=== PATIENT | male | born 1955 | race Caucasian/White ===

== ENCOUNTER 2017-01-02 05:01 | Inpatient (IN) | payer MEDICARE ==
[~2017-01-02] VITALS: Ht 180.3 cm; Wt 98.2 kg
[2017-01-02] VITALS (23 sets, daily range): BP systolic 132–213; BP diastolic 76–133; PULSE 50–108; RESP 16–20; TEMP 97.9; O2SAT 93–98
[2017-01-02] MEDS ORDERED: AMLO10TA2 PO (05:27)
[2017-01-02] MEDS ORDERED: VENL100T PO (05:27)
[2017-01-02] MEDS ORDERED: SIMV20TA PO (05:28)
[2017-01-02] MEDS ORDERED: TAMS0.4C4 PO (05:28)
[2017-01-02] MEDS ORDERED: METH500T3 PO (05:28)
[2017-01-02] MEDS ORDERED: BUSP30TA PO (05:28)
[2017-01-02] MEDS ORDERED: ASPI1TAB69 PO (05:29)
[2017-01-02] MEDS ORDERED: LABE200T2 PO (05:29)
[2017-01-02] MEDS ORDERED: OXYC1CAP PO (05:29)
[2017-01-02] MEDS ORDERED: CRANCAP2 PO (05:30)
[2017-01-02] MEDS ORDERED: MORPHINE SULFATE 4 MG/ML INJ IV PUSH ONE ×2 (05:45→10:45)
[2017-01-02] MEDS ORDERED: ONDANSETRON HCL 4 MG/2 ML VIAL IV PUSH ONE (05:45)
[2017-01-02] MEDS ORDERED: LABETALOL HCL 100 MG/20 ML VIAL IV PUSH ONE (05:45)
[2017-01-02] MEDS ORDERED: SODIUM CHLORIDE 0.9% FLUSH 5 ML FLUSH IVF PRN (05:45)
--- NOTE | 2017-01-02 05:57 | PD ---
HPI Chief Complaint: Hypertension Time Seen by Provider: 05:20 Travel History International Travel<30 days: No Contact w/Intl Traveler<30days: No Traveled to known affect area: No History of Present Illness HPI The patient is a 61 year old male who presents to the [facility] emergency department with a history of reportedly "just not feeling right" this evening. He reports that every time he would try to lie down something would tell him that he needs to get up. He reports that over the last week he has had increased neck pain. 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 He reports that he is chronically on Percocet for this, however his Percocet has not been helping over the last week. He reports that the pain is worse along the left side of his neck. He denies having any numbness or tingling to his arms or legs. He denies having any dizziness, headache, facial droop, difficulty with word finding ability, or weakness in his extremities. The patient reports that when he fell off this evening he took his blood pressure and noticed that it was very high for him. He reports that his blood pressure is usually 120/80. He reports that it is been very well-controlled over the last 5 years since he was diagnosed with an aortic dissection. He reports that this was treated nonoperatively. The patient denies any recent fevers, cough, congestion, neck pain, chest pain, shortness of breath, abdominal pain, vomiting, diarrhea, or new urinary symptoms. PFSH Past Medical History Narrative Medical The patient's past medical history is significant for hypertension, history of a dissecting aortic aneurysm that was managed nonoperatively. Cardiac Catheterization: Yes Cardiovascular Problems: Yes (HTN, disecting aortic aneurysm ) Hypertension: Yes Influenza Vaccination: No Past Surgical History Narrative Surgical The patient's past surgical history is significant for wrist ORIF on the left, hernia repair, bowel surgery as an infant. Other Surgery: Yes (wrist, hernia, small and large bowel surgery when younger ) Social History Alcohol Use: No Tobacco Use: No Substance Use: Yes (marijuana ) Allergies-Medications (Allergen,Severity, Reaction): Coded Allergies: No Known Allergies (Unverified , 01/02/17) Reported Meds & Prescriptions Reported Meds & Active Scripts Active Reported Cranberry Urinary Comfort (Vitamins C & E) 1 Cap 4,200 Cap PO DAILY Aspirin 81 Mg Tabdr 81 Mg PO DAILY Labetalol (Labetalol HCl) 200 Mg Tab 200 Mg PO BID Oxycodone (Oxycodone HCl) 5 Mg Cap 5 Mg PO Q6H PRN Methocarbamol 500 Mg Tab 100 Mg PO TID Buspirone (Buspirone HCl) 30 Mg Tab 30 Mg PO BID Simvastatin 20 Mg Tab 20 Mg PO DAILY Tamsulosin (Tamsulosin HCl) 0.4 Mg Cap 0.4 Mg PO HS Amlodipine (Amlodipine Besylate) 10 Mg Tab 10 Mg PO DAILY Effexor (Venlafaxine HCl) 100 Mg Tab 100 Mg PO Q12H Review of Systems Except as stated in HPI: all other systems reviewed are Neg General / Constitutional: No: Fever Eyes: No: Visual changes HENT: Positive: Neck Pain, No: Headaches, Rhinorrhea, Congestion, Neck Stiffness Cardiovascular: No: Chest Pain or Discomfort, Dyspnea on exertion Respiratory: No: Cough, Shortness of Breath Gastrointestinal: No: Nausea, Vomiting, Diarrhea, Abdominal Pain Genitourinary: No: Dysuria, Flank Pain Musculoskeletal: No: Pain Skin: No Rash Neurologic: No: Weakness, Focal Abnormalities, Change in Mentation, Slurred Speech, Paresthesia, Sensory Disturbance Psychiatric: No: Depression Endocrine: No: Polydipsia Hematologic/Lymphatic: No: Easy Bruising Physical Exam Narrative General: The patient is a well-developed well-nourished male in no acute distress. Head and Neck exam: Head is normocephalic atraumatic. Eyes: EOMI, pupils are equal round and reactive to light. Nose: Midline septum with pink mucous membranes Mouth: Dentition unremarkable. Moist mucus membranes. Posterior oropharynx is not erythematous. No tonsillar hypertrophy. Uvula midline. Airway patent. Neck: No palpable lymphadenopathy. No nuchal rigidity. No thyromegaly. The patient on examination has tenderness along the left cervical paraspinal musculature. The patient has no carotid bruits audible bilaterally. Cardiovascular: Regular rate and rhythm without murmurs, gallops, or rubs. No pulse deficit to the extremities. Lungs: Clear to auscultation bilaterally. No wheezes, rhonchi, or rales. Abdomen: Soft, without tenderness to palpation in all 4 quadrants of the abdomen. No guarding, rebound, or rigidity. No pulsatile mass noted on examination of the abdomen. No tenderness on palpation of McBurney's point. Normal bowel sounds are audible. Extremities: No clubbing, cyanosis, or edema. 2+ pulses in all 4 extremities. Back: No spinous process tenderness to palpation. No costovertebral angle tenderness to palpation. Neurologic Exam: Cranial nerves 2-12 were intact on exam. Strength is 5/5 in all 4 extremities. No sensory deficits noted. Skin Exam: No rash noted. Intact skin that is warm and dry. Data Data Last Documented VS Vital Signs Date Time Temp Pulse Resp B/P Pulse Ox O2 Delivery O2 Flow Rate FiO2 01/02/17 08:20 70 20 185/124 96 Room Air 01/02/17 05:05 97.9 Orders Electrocardiogram (01/02/17 05:45) B-Type Natriuretic Peptide (01/02/17 05:45) Ckmb (Isoenzyme) Profile (01/02/17 05:45) Complete Blood Count With Diff (01/02/17 05:45) Comprehensive Metabolic Panel (01/02/17 05:45) Magnesium (Mg) (01/02/17 05:45) Prothrombin Time / Inr (Pt) (01/02/17 05:45) Act Partial Throm Time (Ptt) (01/02/17 05:45) Troponin I (01/02/17 05:45) Lipase (01/02/17 05:45) Chest, Single Ap (01/02/17 05:45) Ecg Monitoring (01/02/17 05:45) Bilateral Bp Monitoring (01/02/17 05:45) Iv Access Insert/Monitor (01/02/17 05:45) Oximetry (01/02/17 05:45) Oxygen Administration (01/02/17 05:45) Sodium Chloride 0.9% Flush (Ns Flush) (01/02/17 05:45) Cta Thor Abd Aorta W Iv C W3d (01/02/17 05:45) Labetalol Inj (Trandate Inj) (01/02/17 05:45) Morphine Inj (Morphine Inj) (01/02/17 05:45) Ondansetron Inj (Zofran Inj) (01/02/17 05:45) CKMB (01/02/17 05:50) CKMB% (01/02/17 05:50) Iohexol 350 Inj (Omnipaque 350 Inj) (01/02/17 07:22) Esmolol Drip Inj Premix (Brevibloc Drip (01/02/17 07:45) Esmolol Bolus Inj (Brevibloc Bolus Inj) (01/02/17 07:45) Fentanyl Inj (Fentanyl Inj) (01/02/17 07:45) Consult Vascular Surgery (01/02/17 ) Admit Order (Ed Use Only) (01/02/17 08:19) Admit To Inpatient (01/02/17 ) Vital Signs (Adult) Q4H (01/02/17 08:19) Activity Oob With Assistance (01/02/17 08:19) X Ray Developer / Telemetry .CONTINUOUS (01/02/17 08:19) Diet Heart Healthy (01/02/17 Breakfast) Sodium Chloride 0.9% Flush (Ns Flush) (01/02/17 08:30) Sodium Chloride 0.9% Flush (Ns Flush) (01/02/17 09:00) Acetaminophen (Tylenol) (01/02/17 08:30) Ondansetron Inj (Zofran Inj) (01/02/17 08:30) Prochlorperazine Supp (Compazine Supp) (01/02/17 08:30) Bisacodyl Supp (Dulcolax Supp) (01/02/17 08:30) Magnesium Hydroxide Liq (Milk Of Magnesi (01/02/17 08:30) Sennosides (Senokot) (01/02/17 08:30) Basic Metabolic Panel (Bmp) (01/03/17 06:00) Complete Blood Count With Diff (01/03/17 06:00) Resp Oxygen Dre C Titrat 1-4 L (01/02/17 ) Pt Request For Service (01/02/17 08:19) Scd Bilateral/Knee High STEFFEN.BID (01/02/17 08:19) Audi Bilateral/Knee High STEFFEN.QSHIFT (01/02/17 08:19) Inpatient Certification (01/02/17 ) Case Management Consult (01/02/17 ) Labs Laboratory Tests Test 01/02/17 05:50 White Blood Count 11.2 TH/MM3 Red Blood Count 4.14 MIL/MM3 Hemoglobin 13.1 GM/DL Hematocrit 39.1 % Mean Corpuscular Volume 94.5 FL Mean Corpuscular Hemoglobin 31.7 PG Mean Corpuscular Hemoglobin 33.5 % Concent Red Cell Distribution Width 13.3 % Platelet Count 219 TH/MM3 Mean Platelet Volume 7.6 FL Neutrophils (%) (Auto) 68.7 % Lymphocytes (%) (Auto) 19.4 % Monocytes (%) (Auto) 9.0 % Eosinophils (%) (Auto) 2.1 % Basophils (%) (Auto) 0.8 % Neutrophils # (Auto) 7.7 TH/MM3 Lymphocytes # (Auto) 2.2 TH/MM3 Monocytes # (Auto) 1.0 TH/MM3 Eosinophils # (Auto) 0.2 TH/MM3 Basophils # (Auto) 0.1 TH/MM3 CBC Comment DIFF FINAL Differential Comment Prothrombin Time 10.9 SEC Prothromb Time International 1.0 RATIO Ratio Activated Partial 30.1 SEC Thromboplast Time Sodium Level 145 MEQ/L Potassium Level 3.1 MEQ/L Chloride Level 108 MEQ/L Carbon Dioxide Level 29.2 MEQ/L Anion Gap 8 MEQ/L Blood Urea Nitrogen 16 MG/DL Creatinine 1.48 MG/DL Estimat Glomerular Filtration 48 ML/MIN Rate Random Glucose 95 MG/DL Calcium Level 8.7 MG/DL Magnesium Level 2.1 MG/DL Total Bilirubin 0.2 MG/DL Aspartate Amino Transf 18 U/L (AST/SGOT) Alanine Aminotransferase 20 U/L (ALT/SGPT) Alkaline Phosphatase 81 U/L Total Creatine Kinase 260 U/L Creatine Kinase MB 2.7 NG/ML Troponin I LESS THAN 0.02 NG/ML B-Type Natriuretic Peptide 61 PG/ML Total Protein 6.6 GM/DL Albumin 3.7 GM/DL Lipase 96 U/L [facility] Medical Decision Making Medical Screen Exam Complete: Yes Emergency Medical Condition: Yes Medical Record Reviewed: Yes Interpretation(s) Last Impressions Chest X-Ray 01/02/1745 Signed Impressions: Service Date/Time: Monday, January 02, 2017 05:48 - CONCLUSION: Findings suspicious for thoracic aortic aneurysm at the arch. Recommend CTA aorta for further evaluation. Sancho Ly MD Aorta CTA 01/02/1745 Signed Impressions: Service Date/Time: Monday, January 02, 2017 07:01 - CONCLUSION: Type B aortic dissection only involving the descending aorta starting at the level of the aortic arch and aneurysmal dilatation of the false lumen which supplies the celiac, PHIL and left renal arteries. Hugo Gaviria MD Differential Diagnosis Dissecting aneurysm, versus cervical radiculopathy, versus exacerbation of chronic neck pain from degenerative disc disease Narrative Course During the course of the patients emergency department visit, the patients history, examination, and differential diagnosis were reviewed with the patient. The patient had IV access obtained and blood work sent for analysis. The patient was placed on a cardiac rn with oximetry and blood pressure monitoring. An EKG was ordered. The patient's EKG reveals a sinus rhythm with a marked sinus arrhythmia, heart rate of 75, no acute ST segment elevation is noted. T waves are inverted in V1. The patient initially had morphine for pain and labetalol written for blood pressure control, however with 4 mg of morphine IV, Zofran 4 mg IV, the patient' s blood pressure went down to a systolic of 130, labetalol was held and the patient reported feeling improved. The patients laboratory studies were reviewed and remarkable for a white count of 11.2, hemoglobin 13.1, platelets 219 with 9 monocytes, CMP is remarkable for potassium 3.1 which was supplemented orally with 40 mEq of potassium chloride, creatinine 1.48, cardiac enzymes initial set are within normal limits. BMP is 61, lipase 96, PT 10.9, PTT 30.1. The patient's blood pressure and pain recurred. The patient was given additional pain medication and the labetalol was also administered. The patient was started on an esmolol drip. Radiology studies were reviewed and remarkable for a chest x-ray that shows findings suspicious for a thoracic aortic aneurysm of the arch, recommended CTA of the aorta for further evaluation. On repeat vital signs at shift change at 6:59 AM, the patient's blood pressure had gone up again, the patient was given labetalol 10 mg IV. The patient was then transported to CT for evaluation. The patient's case will be checked out to the oncoming emergency physician to disposition based on the imaging results. Critical Care Narrative Aggregate critical care time was 37 minutes. Time to perform other separately billable procedures was not included in the critical care time. My time did not include minutes spent treating any other patients simultaneously or on activities that did not directly contribute to the patient's treatment. The services I provided to this patient were to treat and/or prevent clinically significant deterioration that could result in: Cardiovascular collapse, versus cardiopulmonary arrest I provided critical care services requiring my management, as noted below: Chart data review, documentation time, medication orders and management, vital sign assessments/reviewing monitor data, ordering and reviewing lab tests, ordering and interpreting/reviewing x-rays and diagnostic studies, care of the patient and discussion of the patient with the admitting physicians. Diagnosis Primary Impression: Dissecting aneurysm of thoracic aorta, Rubens type B Additional Impressions: Neck pain Hypertension Qualified Code: I10 - Essential hypertension Admitting Information Admitting Physician Requests: Admit Steffi Goodwin MD Jan 02, 2017 05:57 Narrative Course During the course of the patients emergency department visit, the patients history, examination, and differential diagnosis were reviewed with the patient. The patient had IV access obtained and blood work sent for analysis. The patient was placed on a cardiac rn with oximetry and blood pressure monitoring. An EKG was ordered. The patient's EKG reveals a sinus rhythm with a marked sinus arrhythmia, heart rate of 75, no acute ST segment elevation is noted. T waves are inverted in V1. The patient initially had morphine for pain and labetalol written for blood pressure control, however with 4 mg of morphine IV, Zofran 4 mg IV, the patient' s blood pressure went down to a systolic of 130, labetalol was held and the patient reported feeling improved. The patients laboratory studies were reviewed and remarkable for a white count of 11.2, hemoglobin 13.1, platelets 219 with 9 monocytes, CMP is remarkable for potassium 3.1 which was supplemented orally with 40 mEq of potassium chloride, creatinine 1.48, cardiac enzymes initial set are within normal limits. BMP is 61, lipase 96, PT 10.9, PTT 30.1. Radiology studies were reviewed and remarkable for a chest x-ray that shows findings suspicious for a thoracic aortic aneurysm of the arch, recommended CTA of the aorta for further evaluation. On repeat vital signs at shift change at 6:59 AM, the patient's blood pressure had gone up again, the patient was given labetalol 10 mg IV. The patient was then transported to CT for evaluation. The patient's case will be checked out to the oncoming emergency physician to disposition based on the imaging results. Diagnosis Primary Impression: Neck pain Additional Impression: Hypertension Qualified Code: I10 - Essential hypertension Steffi Goodwin MD Jan 02, 2017 05:57
--- NOTE | 2017-01-02 06:03 | RADRPT ---
EXAM DATE/TIME: 01/02/2017 05:48 [facility] COMPARISON: No previous studies available for comparison. INDICATIONS : Chest pain. MEDICAL HISTORY : None. SURGICAL HISTORY : None. ENCOUNTER: Initial ACUITY: 1 day PAIN SCORE: 0/10 LOCATION: Bilateral chest FINDINGS: Single AP view of the chest. Marked enlargement and lower convexity of the thoracic aortic silhouette suggesting large thoracic aortic aneurysm at the arch. Lungs are clear. No evidence of pleural effus ion or pneumothorax. CONCLUSION: Findings suspicious for thoracic aortic aneurysm at the arch. Recommend CTA aorta for further evaluat ion. Sancho Ly MD on January 02, 2017 at 5:59 Board Certified Radiologist. This report was verified electronically.
[2017-01-02 06:05] LABS: AUTOMATED NEUTROPHIL # 7.7 TH/MM3 (1.8-7.7); BASOPHIL # 0.1 TH/MM3 (0-0.2); BASOPHIL % 0.8 % (0.0-2.0); EOSINOPHIL # 0.2 TH/MM3 (0-0.4); EOSINOPHIL % 2.1 % (0.0-4.0); HEMATOCRIT 39.1 % (39.0-51.0); HEMO FLAGS DIFF FINAL; LYMPH % 19.4 % (9.0-44.0); LYMPHOCYTE # 2.2 TH/MM3 (1.0-4.8); MEAN CELL VOLUME 94.5 FL (80.0-100.0); MEAN CORPUSCULAR HEMOGLOBIN 31.7 PG (27.0-34.0); MEAN CORPUSCULAR HGB CONC 33.5 % (32.0-36.0); NEUT % 68.7 % (16.0-70.0); PLATELET COUNT 219 TH/MM3 (150-450); RED BLOOD COUNT 4.14 MIL/MM3 (4.50-5.90); RED CELL DISTRIBUTION WIDTH 13.3 % (11.6-17.2); WHITE BLOOD COUNT 11.2 TH/MM3 (4.0-11.0)
[2017-01-02 06:17] LABS: APTT (PATIENT) 30.1 SEC (24.3-30.1); PROTHROMBIN TIME - PATIENT 10.9 SEC (9.8-11.6)
[2017-01-02 06:39] LABS: ANION GAP 8 MEQ/L (5-15); AST (GOT) 18 U/L (15-37); BICARBONATE 29.2 MEQ/L (21.0-32.0); BLOOD UREA NITROGEN 16 MG/DL (7-18); CHLORIDE 108 MEQ/L (98-107); GLOMERULAR FILTRATION RATE 48 ML/MIN (>89); MAGNESIUM 2.1 MG/DL (1.5-2.5); POTASSIUM 3.1 MEQ/L (3.5-5.1); SODIUM (NA) 145 MEQ/L (136-145)
[2017-01-02 06:44] LABS: ALKALINE PHOSPHATASE 81 U/L (45-117); ALT (GPT) 20 U/L (12-78); CREATINE KINASE 260 U/L (39-308); TOTAL BILIRUBIN ADULT 0.2 MG/DL (0.2-1.0)
[2017-01-02 06:56] LABS: CKMB 2.7 NG/ML (0.5-3.6)
[2017-01-02] MEDS ORDERED: IOHEXOL 350 MG/ML 10 ML VIAL (for RAD DIAG) IV ONE (07:22)
--- NOTE | 2017-01-02 07:30 | RADRPT ---
EXAM DATE/TIME: 01/02/2017 07:01 [facility] COMPARISON: CHEST SINGLE AP, January 02, 2017, 5:48. INDICATIONS : Aortic dissection. IV CONTRAST: 99 cc Omnipaque 350 (iohexol) IV RADIATION DOSE: 16.99 CTDIvol (mGy) MEDICAL HISTORY : Hypertension. Aortic aneurysm SURGICAL HISTORY : None. ENCOUNTER: Initial ACUITY: 1 day PAIN SCALE: 6/10 LOCATION: chest TECHNIQUE: Volumetric scanning was performed using a multi-row detector CT scanner. The data was post processed with a variety of visualization algorithms including full volume maximum intensity projection, multi -planar sliding thin slab reformation, curved planar reformation, and surface rendering techniques. Using automated exposure control and adjustment of the mA and/or kV according to patient size, radiat ion dose was kept as low as reasonably achievable to obtain optimal diagnostic quality images. FINDINGS: There is aortic dissection which starts at the level of the aortic arch and extends all the way down to involve the left common iliac artery. The ascending aorta is not involved. The aorta is aneur ysmal involving the descending aorta at the level of the aortic arch measuring 8.1 x 7.1 cm in size a nd most of it is due to the false lumen. The takeoff of the celiac artery, PHIL, and left renal artery are supplied by the false lumen. The SMA and right renal artery are supplied by the true lumen. 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 There also cysts in the liver. There are scattered diverticuli mainly in the sigmoid colon without definite signs of diverticulitis. There is fat herniation within bilateral inguinal canals worse on the right without e vidence for bowel herniation. There are degenerative changes and possible bulging discs in the lower lumbosacral spine not adequately characterized. The gallbladder demonstrates multiple stones without gallbladder wall thickening, or pericholecystic fluid. CONCLUSION: Type B aortic dissection only involving the descending aorta starting at the level of the aortic arch and aneurysmal dilatation of the false lumen which supplies the celiac, PHIL and left renal arteries. Hugo Gaviria MD on January 02, 2017 at 7:23 Board Certified Radiologist. This report was verified electronically.
[2017-01-02] MEDS ORDERED: ESMOLOL DRIP INJ PREMIX 250 ML IV SCH (07:45)
[2017-01-02] MEDS ORDERED: ESMOLOL HCL 100 MG/10 ML VIAL IV PUSH PRN (07:45)
--- NOTE | 2017-01-02 08:22 | PD.VS.CON ---
History of Present Illness Chief Complaint: Neck pain, TBAD Consult Requested by: Dr. Holt History of Present Illness 61 yo male with known history of "aortic aneurysm" followed by a vascular surgeon in [place], [place]. Presented to ED with L neck pain. He initially had global neck pain but now is better and more focal on the LEFT side. Never had this pain before. No radiation and no neuro changes. No chest pain or back pain. The patient reports that he has a known history of aneurysm that he has known about for a time and that every time he gets a CXR they notice it. Past/Family/Social History Past Medical History HTN aortic "aneurysm" Past Surgical History L arm surgery UHR as child Social History Lives in [place], [place] but here for bike week Home Medications Reported Medications Vitamins C & E (Cranberry Urinary Comfort)1 Cap4,200 Cap PO DAILY Ref 0 01/02/17 Aspirin 81 Mg Tabdr81 Mg PO DAILY 01/02/17 Labetalol 200 Mg Jer036 Mg PO BID Ref 0 01/02/17 Oxycodone 5 Mg Cap5 Mg PO Q6H PRN (PAIN) Ref 0 01/02/17 Methocarbamol 500 Mg Pht343 Mg PO TID #90 TAB Ref 0 01/02/17 Buspirone 30 Mg Tab30 Mg PO BID Ref 0 01/02/17 Simvastatin 20 Mg Tab20 Mg PO DAILY #30 TAB Ref 0 01/02/17 Tamsulosin 0.4 Mg Cap0.4 Mg PO HS #30 CAP Ref 0 01/02/17 Amlodipine 10 Mg Tab10 Mg PO DAILY #30 TAB Ref 0 01/02/17 Venlafaxine (Effexor)100 Mg [id number] Mg PO Q12H #60 TAB Ref 0 01/02/17 Coded Allergies: No Known Allergies (Unverified , 01/02/17) Review of Systems Constitutional: DENIES: Fever, Chills, Dizziness Cardiovascular: COMPLAINS OF: Claudication, DENIES: Chest pain Musculoskeletal: COMPLAINS OF: Joint pain, Muscle aches, Stiffness, Neck pain Physical Exam Vitals/I&O Date Time Temp Pulse Resp B/P Pulse Ox O2 Delivery O2 Flow Rate FiO2 01/02/17 08:09 75 20 207/112 98 Room Air 01/02/17 07:53 75 18 208/107 98 Room Air 01/02/17 07:25 69 18 193/122 97 Room Air 01/02/17 06:59 108 18 175/115 98 Room Air 01/02/17 06:38 68 20 149/76 93 Room Air 01/02/17 06:24 69 20 167/91 94 Room Air 01/02/17 06:07 75 20 132/96 98 Room Air 01/02/17 06:06 97 Room Air 01/02/17 06:06 98 Room Air 01/02/17 05:31 76 20 98 Room Air 01/02/17 05:24 184/99 192/89 01/02/17 05:05 97.9 71 16 190/117 97 Room Air Neuro: Alert, oriented, no focal defects HEENT: NC/AT Neck: no JVD no point tenderness Heart: reg rate Lungs: clear B Abdomen: UHR incision well healed Vascular: Palpable femoral pulses Extremities: GIVENS, palpable UE pulses, symmetric Laboratory Tests Test 01/02/17 05:50 White Blood Count 11.2 Red Blood Count 4.14 Hemoglobin 13.1 Hematocrit 39.1 Mean Corpuscular Volume 94.5 Mean Corpuscular Hemoglobin 31.7 Mean Corpuscular Hemoglobin 33.5 Concent Red Cell Distribution Width 13.3 Platelet Count 219 Mean Platelet Volume 7.6 Neutrophils (%) (Auto) 68.7 Lymphocytes (%) (Auto) 19.4 Monocytes (%) (Auto) 9.0 Eosinophils (%) (Auto) 2.1 Basophils (%) (Auto) 0.8 Neutrophils # (Auto) 7.7 Lymphocytes # (Auto) 2.2 Monocytes # (Auto) 1.0 Eosinophils # (Auto) 0.2 Basophils # (Auto) 0.1 CBC Comment DIFF FINAL Differential Comment Prothrombin Time 10.9 Prothromb Time International 1.0 Ratio Activated Partial 30.1 Thromboplast Time Sodium Level 145 Potassium Level 3.1 Chloride Level 108 Carbon Dioxide Level 29.2 Anion Gap 8 Blood Urea Nitrogen 16 Creatinine 1.48 Estimat Glomerular Filtration 48 Rate Random Glucose 95 Calcium Level 8.7 Magnesium Level 2.1 Total Bilirubin 0.2 Aspartate Amino Transf 18 (AST/SGOT) Alanine Aminotransferase 20 (ALT/SGPT) Alkaline Phosphatase 81 Total Creatine Kinase 260 Creatine Kinase MB 2.7 Troponin I LESS THAN 0.02 B-Type Natriuretic Peptide 61 Total Protein 6.6 Albumin 3.7 Lipase 96 CTA reviewed: chronic appearing TBAD starting immediately at the [facility]. No evidence of rupture or inflammation. Maximum diamater over 7 cm. Tapers down to celiac with diameter 35mm at that location. dissection continues to L iliac system. Horsehoe kidney but has 2 main renal arteries in normal anatomic location. 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 no evidence of rupture and at present time, I think it is asymptomatic. Based on my review, should have elective repair sooner than later, and if he lived locally, I'd have him follow-up in my clinic to discuss repair, likely to include arch debranching and TEVAR. He has a vascular surgeon in [place] and he'd like to follow up with him. Needs aggressive BP control - started on esmolol gtt in ED. Goal SBP <130. Likely musculoskeletal etiology of neck pain. will monitor closely. Michael Magana MD FACS direct sales professional [facility] [phone] Michael Magana MD Jan 02, 2017 08:22
[2017-01-02] MEDS ORDERED: PROCHLORPERAZINE 25 MG SUPP PR PRN (08:30)
[2017-01-02] MEDS ORDERED: SENNOSIDES 8.6 MG TAB PO PRN (08:30)
[2017-01-02] MEDS ORDERED: oxyCODONE/ACETAMINOPHEN 5 MG/325 MG TAB PO ONE (08:30)
[2017-01-02] MEDS ORDERED: ONDANSETRON HCL 4 MG/2 ML VIAL IVP PRN (08:30)
[2017-01-02] MEDS ORDERED: SODIUM CHLORIDE 0.9% FLUSH 5 ML FLUSH FLUSH PRN (08:30)
[2017-01-02] MEDS ORDERED: MAGNESIUM HYDROXIDE SUSP 30 ML CUP PO PRN (08:30)
[2017-01-02] MEDS ORDERED: BISACODYL 10 MG SUPP PR PRN (08:30)
[2017-01-02] MEDS ORDERED: ACETAMINOPHEN 325 MG TAB PO PRN (08:30)
[2017-01-02] MEDS ORDERED: LABETALOL HCL 200 MG TAB PO ONE (08:30)
--- NOTE | 2017-01-02 08:38 | PD ---
Data Data Last Documented VS Vital Signs Date Time Temp Pulse Resp B/P Pulse Ox O2 Delivery O2 Flow Rate FiO2 01/02/17 08:20 70 20 185/124 96 Room Air 01/02/17 05:05 97.9 Orders Electrocardiogram (01/02/17 05:45) B-Type Natriuretic Peptide (01/02/17 05:45) Ckmb (Isoenzyme) Profile (01/02/17 05:45) Complete Blood Count With Diff (01/02/17 05:45) Comprehensive Metabolic Panel (01/02/17 05:45) Magnesium (Mg) (01/02/17 05:45) Prothrombin Time / Inr (Pt) (01/02/17 05:45) Act Partial Throm Time (Ptt) (01/02/17 05:45) Troponin I (01/02/17 05:45) Lipase (01/02/17 05:45) Chest, Single Ap (01/02/17 05:45) Ecg Monitoring (01/02/17 05:45) Bilateral Bp Monitoring (01/02/17 05:45) Iv Access Insert/Monitor (01/02/17 05:45) Oximetry (01/02/17 05:45) Oxygen Administration (01/02/17 05:45) Sodium Chloride 0.9% Flush (Ns Flush) (01/02/17 05:45) Cta Thor Abd Aorta W Iv C W3d (01/02/17 05:45) Labetalol Inj (Trandate Inj) (01/02/17 05:45) Morphine Inj (Morphine Inj) (01/02/17 05:45) Ondansetron Inj (Zofran Inj) (01/02/17 05:45) CKMB (01/02/17 05:50) CKMB% (01/02/17 05:50) Iohexol 350 Inj (Omnipaque 350 Inj) (01/02/17 07:22) Esmolol Drip Inj Premix (Brevibloc Drip (01/02/17 07:45) Esmolol Bolus Inj (Brevibloc Bolus Inj) (01/02/17 07:45) Fentanyl Inj (Fentanyl Inj) (01/02/17 07:45) Consult Vascular Surgery (01/02/17 ) Admit Order (Ed Use Only) (01/02/17 08:19) Admit To Inpatient (01/02/17 ) Vital Signs (Adult) Q4H (01/02/17 08:19) Activity Oob With Assistance (01/02/17 08:19) Casting Wheel Operator Helper / Telemetry .CONTINUOUS (01/02/17 08:19) Diet Heart Healthy (01/02/17 Breakfast) Sodium Chloride 0.9% Flush (Ns Flush) (01/02/17 08:30) Sodium Chloride 0.9% Flush (Ns Flush) (01/02/17 09:00) Acetaminophen (Tylenol) (01/02/17 08:30) Ondansetron Inj (Zofran Inj) (01/02/17 08:30) Prochlorperazine Supp (Compazine Supp) (01/02/17 08:30) Bisacodyl Supp (Dulcolax Supp) (01/02/17 08:30) Magnesium Hydroxide Liq (Milk Of Magnesi (01/02/17 08:30) Sennosides (Senokot) (01/02/17 08:30) Basic Metabolic Panel (Bmp) (01/03/17 06:00) Complete Blood Count With Diff (01/03/17 06:00) Resp Oxygen Dre C Titrat 1-4 L (01/02/17 ) Pt Request For Service (01/02/17 08:19) Scd Bilateral/Knee High STEFFEN.BID (01/02/17 08:19) Audi Bilateral/Knee High STEFFEN.QSHIFT (01/02/17 08:19) Inpatient Certification (01/02/17 ) Case Management Consult (01/02/17 ) Labs Laboratory Tests Test 01/02/17 05:50 White Blood Count 11.2 TH/MM3 Red Blood Count 4.14 MIL/MM3 Hemoglobin 13.1 GM/DL Hematocrit 39.1 % Mean Corpuscular Volume 94.5 FL Mean Corpuscular Hemoglobin 31.7 PG Mean Corpuscular Hemoglobin 33.5 % Concent Red Cell Distribution Width 13.3 % Platelet Count 219 TH/MM3 Mean Platelet Volume 7.6 FL Neutrophils (%) (Auto) 68.7 % Lymphocytes (%) (Auto) 19.4 % Monocytes (%) (Auto) 9.0 % Eosinophils (%) (Auto) 2.1 % Basophils (%) (Auto) 0.8 % Neutrophils # (Auto) 7.7 TH/MM3 Lymphocytes # (Auto) 2.2 TH/MM3 Monocytes # (Auto) 1.0 TH/MM3 Eosinophils # (Auto) 0.2 TH/MM3 Basophils # (Auto) 0.1 TH/MM3 CBC Comment DIFF FINAL Differential Comment Prothrombin Time 10.9 SEC Prothromb Time International 1.0 RATIO Ratio Activated Partial 30.1 SEC Thromboplast Time Sodium Level 145 MEQ/L Potassium Level 3.1 MEQ/L Chloride Level 108 MEQ/L Carbon Dioxide Level 29.2 MEQ/L Anion Gap 8 MEQ/L Blood Urea Nitrogen 16 MG/DL Creatinine 1.48 MG/DL Estimat Glomerular Filtration 48 ML/MIN Rate Random Glucose 95 MG/DL Calcium Level 8.7 MG/DL Magnesium Level 2.1 MG/DL Total Bilirubin 0.2 MG/DL Aspartate Amino Transf 18 U/L (AST/SGOT) Alanine Aminotransferase 20 U/L (ALT/SGPT) Alkaline Phosphatase 81 U/L Total Creatine Kinase 260 U/L Creatine Kinase MB 2.7 NG/ML Troponin I LESS THAN 0.02 NG/ML B-Type Natriuretic Peptide 61 PG/ML Total Protein 6.6 GM/DL Albumin 3.7 GM/DL Lipase 96 U/L MDM Supervised Visit with DARIUS: No Narrative Course Patient signed out to me by previous provider. Please see associated no for further details. In short patient is a 61-year-old male with history of known aortic aneurysm and likely dissection. Patient describes a history of a "tear" in his aorta that was managed medically. Never required surgical management. Patient has history of chronic posterior neck pain but for the last several days he has been having left anterior neck pain. No pain in the chest. Blood pressure notably elevated, treated with morphine and labetalol with transient improvement and started on a small drip. Previous provider very suspicious for aortic dissection and signed out to me pending CTA results. 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 Vascular surgery consulted and feel that this is likely chronic in nature. Again patient does have a history of same. Records were requested from [place], remain pending. In the interim patient will be admitted for further blood pressure management and reviewed patient's old records. Diagnosis Primary Impression: Descending thoracic aortic dissection Additional Impressions: Neck pain Hypertension Qualified Code: I10 - Essential hypertension Admitting Information Admitting Physician Requests: Admit Kenisha Holt MD Jan 02, 2017 08:38
[2017-01-02] MEDS: SODIUM CHLORIDE 0.9% FLUSH 5 ML FLUSH FLUSH SCH ×2 (08:43→21:00)
--- NOTE | 2017-01-02 14:40 | EKG ---
Date Performed: 01/02/2017 Time Performed: 05:28:29 PTAGE: 61 years EKG: Sinus rhythm WITH MARKED SINUS ARRHYTHMIA BORDERLINE ECG INTERPRETATION BASED ON A DEFAULT AGE OF 40 YEARS NO PREVIOUS TRACING DOCTOR: Jw Valdez Interpretating Date/Time 01/02/2017 14:38:32
--- NOTE | 2017-01-02 14:50 | HHI.HP ---
[facility] Service [facility] Primary Care Physician Non-Staff Admission Diagnosis descending aortic aneurysm Diagnoses: Chief Complaint: chest pain/neck pain Travel History International Travel<30 Days: No Contact w/Intl Traveler <30 Da: No Traveled to Known Affected Are: No History of Present Illness Patient is a pleasant 61 yo male with PMH of Type B descending aortic aneurysm managed medically in [facility] who came to the ED with c/o "just not feeling right" this evening. He reports that over the last week he has had increased neck pain. 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 He reports that he is chronically on Percocet for this, however his Percocet has not been helping over the last week. He reports that the pain is worse along the left side of his neck. He denies having any numbness or tingling to his arms or legs. He denies having any dizziness, headache, facial droop, difficulty with word finding ability, or weakness in his extremities. The patient reports that when he fell off this evening he took his blood pressure and noticed that it was very high for him. He reports that his blood pressure is usually 120/80. He reports that it is been very well-controlled over the last 5 years since he was diagnosed with an aortic dissection. He reports that this was treated nonoperatively. The patient denies any recent fevers, cough, congestion, neck pain, chest pain, shortness of breath, abdominal pain, vomiting, diarrhea, or new urinary symptoms. Review of Systems Except as stated in HPI: all other systems reviewed are Neg 12 system ROS reviewed and negative except as stated in HPI Past Family Social History Past Medical History HTN, dissecting aortic aneurysm, BPH, depression Past Surgical History Wrist ORIF on the left, hernia repair, bowel surgery as an . Allergies: Coded Allergies: No Known Allergies (Unverified , 01/02/17) Family History Sister is healthy, no diabetes , stroke or heart problems that runs in the family Social History Denies tobacco use, illicit drug use or EtOH use. Physical Exam Vital Signs Vital Signs Date Time Temp Pulse Resp B/P Pulse Ox O2 Delivery O2 Flow Rate FiO2 01/02/17 13:13 98 Nasal Cannula 2.00 01/02/17 11:11 50 01/02/17 10:25 57 01/02/17 08:50 63 20 165/98 96 Room Air 01/02/17 08:40 74 20 176/103 97 Room Air 01/02/17 08:30 76 20 198/119 97 Room Air 01/02/17 08:25 74 20 213/133 97 Room Air 01/02/17 08:20 70 20 185/124 96 Room Air 01/02/17 08:15 74 20 199/93 98 Room Air 01/02/17 08:09 75 20 207/112 98 Room Air 01/02/17 07:53 75 18 208/107 98 Room Air 01/02/17 07:25 69 18 193/122 97 Room Air 01/02/17 07:00 18 98 Room Air 01/02/17 06:59 108 18 175/115 98 Room Air 01/02/17 06:38 68 20 149/76 93 Room Air 01/02/17 06:24 69 20 167/91 94 Room Air 01/02/17 06:07 75 20 132/96 98 Room Air 01/02/17 06:06 97 Room Air 01/02/17 06:06 98 Room Air 01/02/17 05:31 76 20 98 Room Air 01/02/17 05:24 184/99 192/89 01/02/17 05:05 97.9 71 16 190/117 97 Room Air Physical Exam GENERAL: This is a pleasant well-nourished, well-developed patient, in no apparent distress. SKIN: No rashes, ecchymoses or lesions. Cool and dry. HEAD: Atraumatic. Normocephalic. No temporal or scalp tenderness. EYES: Pupils equal round and reactive. Extraocular motions intact. No scleral icterus. No injection or drainage. ENT: Nose without bleeding, purulent drainage or septal hematoma. Throat without erythema, tonsillar hypertrophy or exudate. Uvula midline. Airway patent. NECK: Trachea midline. No JVD or lymphadenopathy. Supple, nontender, no meningeal signs. CARDIOVASCULAR: Regular rate and rhythm without murmurs, gallops, or rubs. RESPIRATORY: Clear to auscultation. Breath sounds equal bilaterally. No wheezes , rales, or rhonchi. GASTROINTESTINAL: Abdomen soft, non-tender, nondistended. No hepato-splenomegaly , or palpable masses. No guarding. MUSCULOSKELETAL: Extremities without clubbing, cyanosis, or edema. No joint tenderness, effusion, or edema noted. No calf tenderness. Negative Homans sign bilaterally. NEUROLOGICAL: Awake and alert. Cranial nerves II through XII intact. Motor and sensory grossly within normal limits. Five out of 5 muscle strength in all muscle groups. Normal speech. Laboratory Laboratory Tests Test 01/02/17 05:50 White Blood Count 11.2 Red Blood Count 4.14 Hemoglobin 13.1 Hematocrit 39.1 Mean Corpuscular Volume 94.5 Mean Corpuscular Hemoglobin 31.7 Mean Corpuscular Hemoglobin 33.5 Concent Red Cell Distribution Width 13.3 Platelet Count 219 Mean Platelet Volume 7.6 Neutrophils (%) (Auto) 68.7 Lymphocytes (%) (Auto) 19.4 Monocytes (%) (Auto) 9.0 Eosinophils (%) (Auto) 2.1 Basophils (%) (Auto) 0.8 Neutrophils # (Auto) 7.7 Lymphocytes # (Auto) 2.2 Monocytes # (Auto) 1.0 Eosinophils # (Auto) 0.2 Basophils # (Auto) 0.1 CBC Comment DIFF FINAL Differential Comment Prothrombin Time 10.9 Prothromb Time International 1.0 Ratio Activated Partial 30.1 Thromboplast Time Sodium Level 145 Potassium Level 3.1 Chloride Level 108 Carbon Dioxide Level 29.2 Anion Gap 8 Blood Urea Nitrogen 16 Creatinine 1.48 Estimat Glomerular Filtration 48 Rate Random Glucose 95 Calcium Level 8.7 Magnesium Level 2.1 Total Bilirubin 0.2 Aspartate Amino Transf 18 (AST/SGOT) Alanine Aminotransferase 20 (ALT/SGPT) Alkaline Phosphatase 81 Total Creatine Kinase 260 Creatine Kinase MB 2.7 Troponin I LESS THAN 0.02 B-Type Natriuretic Peptide 61 Total Protein 6.6 Albumin 3.7 Lipase 96 Result Diagram: 01/02/1750 01/02/17 0550 Assessment and Plan Assessment and Plan 61 yo male with Type B Aortic aneurysm possible chronic, per patient has it for 6 years. Will obtain records from his hospital in [facility] Hypertensive emergency Chest x-ray that shows findings suspicious for a thoracic aortic aneurysm of the arch. CTA reviewed confirmed Type B Aortic aneurysm Received labetalol 10 in the ED. Vasc surgeon consulted, Dr Devlin appreciate recommendations. Started IV esmolol drip, BP better controlled, however HR noted in low 40s. DC esmolol and started nicardipine drip. Discussed with the nurse. Goal SBP < 130 and HR 60-100. Restart home meds labetalol 200 mg po bid, losartan 50 mg po, amlodipine 10 mg daily. Hold ASA or any chemical anticoagulation at this time. Hypokalemia K 3.1 on admission. Replaced in the ED with 40 mEq . Monitor and replace as need. GLEN, unknown baseline Cr . creatinine 1.48 on admission. Likely 2/2 hypertension emergency. Monitor kidney function. Hole on IVF as patient with elevated BP. BPH will restart flomax Depression restart home meds. stable at this time. Morphine IV for pain control. DVT ppx SCD/TEDs , hold chemical ppx at this time Code Status full Discussed Condition With Patient, nurse, ED physician Dr Hdz. Physician Certification 2 Midnight Certification Type: Admission for Inpatient Services Order for Inpatient Services The services are ordered in accordance with Medicare regulations or non- Medicare payer requirements, as applicable. In the case of services not specified as inpatient-only, they are appropriately provided as inpatient services in accordance with the 2-midnight benchmark. Estimated LOS (days): 3 days is the estimated time the patient will need to remain in the hospital, assuming treatment plan goals are met and no additional complications. Post-Hospital Plan: Home Billie Cole MD Jan 02, 2017 14:49
[2017-01-02] MEDS: niCARdipine INJ 25 MG in SODIUM CHLOR 0.9% 250 ML INJ 250 ML IV SCH ×2 (16:18→23:49)
[2017-01-02] MEDS ORDERED: METHOCARBAMOL 500 MG TAB PO PRN (16:30)
--- NOTE | 2017-01-02 16:43 | PD.VS.PN ---
Subjective Subjective/Hospital Course Pt admitted this morning with cTBAD and neck pain. Pain has abated somewhat. No CP and back pain. BP much better controlled. Objective Vitals/I&O Date Time Temp Pulse Resp B/P Pulse Ox O2 Delivery O2 Flow Rate FiO2 01/02/17 13:13 98 Nasal Cannula 2.00 01/02/17 11:11 50 01/02/17 10:25 57 01/02/17 08:50 63 20 165/98 96 Room Air 01/02/17 08:40 74 20 176/103 97 Room Air 01/02/17 08:30 76 20 198/119 97 Room Air 01/02/17 08:25 74 20 213/133 97 Room Air 01/02/17 08:20 70 20 185/124 96 Room Air 01/02/17 08:15 74 20 199/93 98 Room Air 01/02/17 08:09 75 20 207/112 98 Room Air 01/02/17 07:53 75 18 208/107 98 Room Air 01/02/17 07:25 69 18 193/122 97 Room Air 01/02/17 07:00 18 98 Room Air 01/02/17 06:59 108 18 175/115 98 Room Air 01/02/17 06:38 68 20 149/76 93 Room Air 01/02/17 06:24 69 20 167/91 94 Room Air 01/02/17 06:07 75 20 132/96 98 Room Air 01/02/17 06:06 97 Room Air 01/02/17 06:06 98 Room Air 01/02/17 05:31 76 20 98 Room Air 01/02/17 05:24 184/99 192/89 01/02/17 05:05 97.9 71 16 190/117 97 Room Air Physical Exam Resting comfortably. No chest pain. Laboratory Laboratory Tests Test 01/02/17 05:50 White Blood Count 11.2 Red Blood Count 4.14 Hemoglobin 13.1 Hematocrit 39.1 Mean Corpuscular Volume 94.5 Mean Corpuscular Hemoglobin 31.7 Mean Corpuscular Hemoglobin 33.5 Concent Red Cell Distribution Width 13.3 Platelet Count 219 Mean Platelet Volume 7.6 Neutrophils (%) (Auto) 68.7 Lymphocytes (%) (Auto) 19.4 Monocytes (%) (Auto) 9.0 Eosinophils (%) (Auto) 2.1 Basophils (%) (Auto) 0.8 Neutrophils # (Auto) 7.7 Lymphocytes # (Auto) 2.2 Monocytes # (Auto) 1.0 Eosinophils # (Auto) 0.2 Basophils # (Auto) 0.1 CBC Comment DIFF FINAL Differential Comment Prothrombin Time 10.9 Prothromb Time International 1.0 Ratio Activated Partial 30.1 Thromboplast Time Sodium Level 145 Potassium Level 3.1 Chloride Level 108 Carbon Dioxide Level 29.2 Anion Gap 8 Blood Urea Nitrogen 16 Creatinine 1.48 Estimat Glomerular Filtration 48 Rate Random Glucose 95 Calcium Level 8.7 Magnesium Level 2.1 Total Bilirubin 0.2 Aspartate Amino Transf 18 (AST/SGOT) Alanine Aminotransferase 20 (ALT/SGPT) Alkaline Phosphatase 81 Total Creatine Kinase 260 Creatine Kinase MB 2.7 Troponin I LESS THAN 0.02 B-Type Natriuretic Peptide 61 Total Protein 6.6 Albumin 3.7 Lipase 96 Imaging Last 48 hours Impressions Chest X-Ray 01/02/17 0545 Signed Impressions: Service Date/Time: Monday, January 02, 2017 05:48 - CONCLUSION: Findings suspicious for thoracic aortic aneurysm at the arch. Recommend CTA aorta for further evaluation. Sancho Ly MD Aorta CTA 01/02/17 0545 Signed Impressions: Service Date/Time: Monday, January 02, 2017 07:01 - CONCLUSION: Type B aortic dissection only involving the descending aorta starting at the level of the aortic arch and aneurysmal dilatation of the false lumen which supplies the celiac, PHIL and left renal arteries. Hugo Gaviria MD Assessment and Plan Plan cTBAD, stable. Looks good. SBP goal <130. d/c planning - I again talked with the pt/family and they will f/u locally with surgeon they already have a relationship with. Michael Magana MD Jan 02, 2017 16:43
[2017-01-02] MEDS ORDERED: ICU - CALL ORDERING PHYSICIAN XX PRN (17:00)
[2017-01-02] MEDS ORDERED: ICU - POTASSIUM CHLORIDE/AQUEOUS SOLN 20 MEQ/100 ML IVPB IV PRN (17:00)
[2017-01-02] MEDS ORDERED: ICU - MAGNESIUM SULFATE 2 GM/NS 100 ML IV PRN ×2 (17:00)
[2017-01-02] MEDS ORDERED: ICU - MAGNESIUM SULFATE 4 GM/NS 100 ML IV PRN ×2 (17:00)
[2017-01-02] MEDS ORDERED: ICU - D/C ICU ELECTROLYTE ORDERS XX PRN (17:00)
[2017-01-02] MEDS ORDERED: ICU - POTASSIUM PHOSPHATE 30 MMOL/NS 250 ML IV PRN ×2 (17:00)
[2017-01-02] MEDS ORDERED: POTASSIUM CHLORIDE 20 MEQ PO PRN (17:00)
[2017-01-02] MEDS ORDERED: ICU - POTASSIUM PHOSPHATE MONOBASIC 500 MG TAB PO/TUBE PRN (17:00)
[2017-01-02] MEDS ORDERED: ICU - MAGNESIUM OXIDE 400 MG TAB PO PRN (17:00)
[2017-01-02] MEDS ORDERED: ICU - SODIUM PHOSPHATE 30 MMOL/NS 250 ML IV PRN ×2 (17:00)
[2017-01-02] MEDS: oxyCODONE/ACETAMINOPHEN 5 MG/325 MG TAB PO PRN ×2 (17:19→22:57)
[2017-01-02] MEDS ORDERED: METHOCARBAMOL 500 MG TAB PO SCH (18:00)
[2017-01-02] MEDS: busPIRone HCL 10 MG TAB PO SCH (20:06)
[2017-01-02] MEDS: LABETALOL HCL 200 MG TAB PO SCH (20:06)
[2017-01-02] MEDS ORDERED: TAMSULOSIN HCL 0.4 MG CAP PO SCH (21:00)
[2017-01-02] MEDS: VENLAFAXINE HCL 25 MG TAB PO SCH (21:59)
[2017-01-03] MEDS: MORPHINE SULFATE 4 MG/ML INJ IV PUSH PRN ×2 (02:11→06:37)
[2017-01-03 02:20] VITALS: RESP 18
[2017-01-03 03:00] VITALS: PULSE 59
[2017-01-03] MEDS: niCARdipine INJ 25 MG in SODIUM CHLOR 0.9% 250 ML INJ 250 ML IV SCH ×2 (03:03→06:31)
[2017-01-03 06:02] LABS: AUTOMATED NEUTROPHIL # 9.6 TH/MM3 (1.8-7.7); BASOPHIL % 0.3 % (0.0-2.0); EOSINOPHIL # 0.1 TH/MM3 (0-0.4); EOSINOPHIL % 0.4 % (0.0-4.0); HEMATOCRIT 40.3 % (39.0-51.0); HEMO FLAGS DIFF FINAL; LYMPH % 13.1 % (9.0-44.0); LYMPHOCYTE # 1.6 TH/MM3 (1.0-4.8); MEAN CELL VOLUME 94.3 FL (80.0-100.0); MEAN CORPUSCULAR HEMOGLOBIN 31.5 PG (27.0-34.0); MEAN CORPUSCULAR HGB CONC 33.4 % (32.0-36.0); MONO % 6.6 % (0.0-8.0); NEUT % 79.6 % (16.0-70.0); PLATELET COUNT 216 TH/MM3 (150-450); RED BLOOD COUNT 4.27 MIL/MM3 (4.50-5.90); RED CELL DISTRIBUTION WIDTH 13.2 % (11.6-17.2); WHITE BLOOD COUNT 12.1 TH/MM3 (4.0-11.0)
[2017-01-03 06:26] LABS: POTASSIUM 3.1 MEQ/L (3.5-5.1)
[2017-01-03 07:00] VITALS: PULSE 67
[2017-01-03] MEDS: ICU - POTASSIUM CHLORIDE/AQUEOUS SOLN 40 MEQ/100 ML IVPB IV PRN ×2 (07:31→07:32)
--- NOTE | 2017-01-03 07:54 | HHI.PR ---
Subjective Remarks Feels improved. Has headache, he is asking for imitrex as he is taking at home. Denies having any chest pain . No n/v/d/c. No fever or chills. No n/v/d/c. Still on the nicardipine drip restarted home meds and wean off drip. Discussed with the nurse, family at bedside. Objective Vitals Vital Signs Date Time Temp Pulse Resp B/P Pulse Ox O2 Delivery O2 Flow Rate FiO2 01/03/17 07:00 67 01/03/17 03:00 59 01/03/17 02:20 18 01/03/17 00:00 18 01/02/17 23:00 71 01/02/17 20:00 61 01/02/17 19:28 97 Nasal Cannula 2.00 01/02/17 15:00 57 01/02/17 13:13 98 Nasal Cannula 2.00 01/02/17 11:11 50 01/02/17 10:25 57 01/02/17 08:50 63 20 165/98 96 Room Air 01/02/17 08:40 74 20 176/103 97 Room Air 01/02/17 08:30 76 20 198/119 97 Room Air 01/02/17 08:25 74 20 213/133 97 Room Air 01/02/17 08:20 70 20 185/124 96 Room Air 01/02/17 08:15 74 20 199/93 98 Room Air 01/02/17 08:09 75 20 207/112 98 Room Air I/O 01/02/17 01/02/17 01/02/17 01/03/17 01/03/17 01/03/17 07:00 15:00 23:00 07:00 15:00 23:00 Intake Total 1220 ml 1083 ml Output Total 1650 ml 550 ml Balance -430 ml 533 ml Intake Oral 840 ml 250 ml IV Total 380 ml 833 ml Output Urine Total 1650 ml 550 ml # Bowel Movements 0 0 Result Diagram: 01/03/1743101/03/172 Imaging Last Impressions Chest X-Ray 01/02/17 0584 Signed Impressions: Service Date/Time: Monday, January 02, 2017 05:48 - CONCLUSION: Findings suspicious for thoracic aortic aneurysm at the arch. Recommend CTA aorta for further evaluation. Sancho Ly MD Aorta CTA 01/02/17 0545 Signed Impressions: Service Date/Time: Monday, January 02, 2017 07:01 - CONCLUSION: Type B aortic dissection only involving the descending aorta starting at the level of the aortic arch and aneurysmal dilatation of the false lumen which supplies the celiac, PHIL and left renal arteries. Hugo Gaviria MD Objective Remarks GENERAL: This is a pleasant well-nourished, well-developed patient, in no apparent distress. SKIN: No rashes, ecchymoses or lesions. Cool and dry. HEAD: Atraumatic. Normocephalic. No temporal or scalp tenderness. EYES: Pupils equal round and reactive. Extraocular motions intact. No scleral icterus. No injection or drainage. ENT: Nose without bleeding, purulent drainage or septal hematoma. Throat without erythema, tonsillar hypertrophy or exudate. Uvula midline. Airway patent. NECK: Trachea midline. No JVD or lymphadenopathy. Supple, nontender, no meningeal signs. CARDIOVASCULAR: Regular rate and rhythm without murmurs, gallops, or rubs. RESPIRATORY: Clear to auscultation. Breath sounds equal bilaterally. No wheezes , rales, or rhonchi. GASTROINTESTINAL: Abdomen soft, non-tender, nondistended. No hepato-splenomegaly , or palpable masses. No guarding. MUSCULOSKELETAL: Extremities without clubbing, cyanosis, or edema. No joint tenderness, effusion, or edema noted. No calf tenderness. Negative Homans sign bilaterally. NEUROLOGICAL: Awake and alert. Cranial nerves II through XII intact. Motor and sensory grossly within normal limits. Five out of 5 muscle strength in all muscle groups. Normal speech. A/P Assessment and Plan 61 yo male with Chronic Rubens Type B Thoracic Aortic aneurysm, per patient has it for 6 years. Records from his hospital in [place] reviewed. [facility] has [facility] in [place] and plans for surgery Hypertensive emergency/neck pain Chest x-ray that shows findings suspicious for a thoracic aortic aneurysm of the arch. CTA reviewed confirmed Type B Aortic aneurysm Received labetalol 10 in the ED. Vasc surgeon consulted, Dr Magana appreciate recommendations. Recommends medical management at this time, no surgical intervention. Recommends f/u with his doctor and surgical approach in [place] with his surgeon. Patient wants to follow up with his doctor in [place]. Started IV esmolol drip, BP better controlled, however HR noted in low 40s. DC esmolol and started nicardipine drip. Discussed with the nurse. Goal SBP < 130 and HR 60-100. Restart home meds labetalol 200 mg po bid, losartan 50 mg po, amlodipine 10 mg daily. Hold ASA or any chemical anticoagulation at this time. Hypokalemia K 3.1 on admission. Replaced in the ED with 40 mEq . Monitor and replace as need. Electrolytes per ICU protocol. GLEN, unknown baseline Cr . creatinine 1.48 on admission. Likely 2/2 hypertension emergency. Monitor kidney function. Hold on IVF as patient with elevated BP. BPH will restart flomax Depression restart home meds. stable at this time. Morphine IV for pain control. DVT ppx SCD/TEDs , hold chemical ppx at this time Code Status full Discussed Condition With Patient, nurse, family at bedside Discharge plan: Improving. Plan to DC home if SBP is controlled sustained SBP< 140. Patient to follow up as Op with PCP and with his vascular surgeon in [place], plans to fly to [place]. Diet: healthy heart diet. Meds per med reconciliations Activity ad harrison as tolerated Billie Cole MD Jan 03, 2017 07:54 Prothromb Time International 1.0 Ratio Activated Partial 30.1 Thromboplast Time Sodium Level 145 Potassium Level 3.1 Chloride Level 108 Carbon Dioxide Level 29.2 Anion Gap 8 Blood Urea Nitrogen 16 Creatinine 1.48 Estimat Glomerular Filtration 48 Rate Random Glucose 95 Calcium Level 8.7 Magnesium Level 2.1 Total Bilirubin 0.2 Aspartate Amino Transf 18 (AST/SGOT) Alanine Aminotransferase 20 (ALT/SGPT) Alkaline Phosphatase 81 Total Creatine Kinase 260 Creatine Kinase MB 2.7 Troponin I LESS THAN 0.02 B-Type Natriuretic Peptide 61 Total Protein 6.6 Albumin 3.7 Lipase 96 Result Diagram: 01/02/17 0550 01/02/17 0550 Septic Shock Reassessment Septic Shock Reassessment Assessment and Plan Assessment and Plan Assessment and Plan 61 yo male with Type B Aortic aneurysm possible chronic, per patient has it for 6 years. Will obtain records from his hospital in [facility] Hypertensive emergency Chest x-ray that shows findings suspicious for a thoracic aortic aneurysm of the arch. CTA reviewed confirmed Type B Aortic aneurysm Received labetalol 10 in the ED. Vasc surgeon consulted, Dr Devlin appreciate recommendations. Started IV esmolol drip, BP better controlled, however HR noted in low 40s. DC esmolol and started nicardipine drip. Discussed with the nurse. Goal SBP < 130 and HR 60-100. Restart home meds labetalol 200 mg po bid, losartan 50 mg po, amlodipine 10 mg daily. Hold ASA or any chemical anticoagulation at this time. Hypokalemia K 3.1 on admission. Replaced in the ED with 40 mEq . Monitor and replace as need. GLEN, unknown baseline Cr . creatinine 1.48 on admission. Likely 2/2 hypertension emergency. Monitor kidney function. Hole on IVF as patient with elevated BP. BPH will restart flomax Depression restart home meds. stable at this time. Morphine IV for pain control. DVT ppx SCD/TEDs , hold chemical ppx at this time Code Status full Discussed Condition With Patient, nurse Billie Cole MD Jan 03, 2017 07:54
[2017-01-03 08:02] VITALS: O2SAT 93
[2017-01-03] MEDS ORDERED: DIOV160T6 PO (08:12)
[2017-01-03] MEDS ORDERED: AMLO10TA2 PO (08:12)
--- NOTE | 2017-01-03 08:12 | HHI.DCPOC ---
Discharge Care Plan Goals to Promote Your Health * To prevent worsening of your condition and complications * To maintain your health at the optimal level Directions to Meet Your Goals Take your medications as prescribed Follow your dietary instruction Follow activity as directed Keep your appointments as scheduled Take your immunizations and boosters as scheduled If your symptoms worsen call your PCP, if no PCP go to Urgent Care Center or Emergency Room Smoking is Dangerous to Your Health. Avoid second hand smoke Call the 24-hour hour crisis hotline for domestic abuse at Billie Cole MD Jan 03, 2017 08:12
[2017-01-03] MEDS ORDERED: SUMAtriptan SUCCINATE 50 MG TAB PO PRN (08:30)
[2017-01-03] MEDS: SODIUM CHLORIDE 0.9% FLUSH 5 ML FLUSH FLUSH SCH (08:33)
[2017-01-03] MEDS: busPIRone HCL 10 MG TAB PO SCH (08:45)
[2017-01-03] MEDS: LABETALOL HCL 200 MG TAB PO SCH (08:45)
[2017-01-03] MEDS: VENLAFAXINE HCL 25 MG TAB PO SCH (08:45)
[2017-01-03] MEDS ORDERED: NON-FORMULARY DRUG (Simvastatin 20 MG) PO SCH (09:00)
[2017-01-03] MEDS ORDERED: LOSARTAN 50 MG TAB PO SCH (09:00)
[2017-01-03] MEDS ORDERED: VALSARTAN 160 MG TAB PO SCH (09:00)
[2017-01-03] MEDS ORDERED: PRAVASTATIN SOD 40 MG TAB PO SCH (09:00)
[2017-01-03 11:00] VITALS: PULSE 55
== END 2017-01-03 11:18 | disposition home or self-care (01) | DRG 304 ==
LOC: NEPE 05:01 → NEDA 08:21 → HCVR 09:30
PROVIDERS: ADMIT Hospitalist; ATTEND Hospitalist
DX: I16.1 Hypertensive emergency (principal); I71.01 Dissection of thoracic aorta; N17.9 Acute kidney failure, unspecified; I10 Essential (primary) hypertension; F32.9 Major depressive disorder, single episode, unspecified; N40.0 Benign prostatic hyperplasia without lower urinary tract symptoms; E87.6 Hypokalemia; R51 Headache
CPT/HCPCS: 71010; 71275; 74174; 80048; 80053; 82550; 82552; 83690; 83735; 83880; 84484; 85025; 85610; 85730; 93005; 96365; 96375; 96376; J2270; J2405; J3010; J3480; J7050; Q9967